=== PATIENT | female | born 1970 | race American Indian/Alaskan Native ===

== ENCOUNTER 2018-12-13 17:47 | Emergency (ER) | payer SELFPAY ==
[2018-12-13] MEDS ORDERED: ZESTRIL PO ONE (19:52)
[2018-12-13] MEDS ORDERED: NORVASC PO ONE (19:52)
[2018-12-13 20:18] VITALS: BP 173/103
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
--- NOTE | 2018-12-13 20:50 | XRay Report ---
CHEST 2 VIEWS INDICATION / CLINICAL INFORMATION: right sided chest pain. COMPARISON: None available. FINDINGS: SUPPORT DEVICES: None. HEART / MEDIASTINUM: Heart is upper normal size. LUNGS / PLEURA: No significant pulmonary or pleural abnormality. No pneumothorax. ADDITIONAL FINDINGS: No acute skeletal abnormality. IMPRESSION: 1. No acute findings. Signer Name: Lucero Pritchett MD Signed: 12/13/2018 8:45 PM Workstation Name: [id number]
== END 2018-12-13 22:34 | disposition home or self-care (01) ==
LOC: ED 17:47
DX: R07.89 Other chest pain (principal); I10 Essential (primary) hypertension; Z79.899 Other long term (current) drug therapy; V49.50XA Passenger injured in collision with unspecified motor vehicles in traffic accident, initial encounter; Y93.89 Activity, other specified; Y92.410 Unspecified street and highway as the place of occurrence of the external cause; Y99.8 Other external cause status
CPT/HCPCS: 71046; 93005; 93010